=== PATIENT | male | born 1955 | race Caucasian/White ===

== ENCOUNTER → 2021-04-16 | Outpatient (CLI) | payer OTHER | END | disposition home or self-care (01) | LOC: OIH 07:42 | PROVIDERS: ATTEND Internal Medicine Cardiovascular Disease | DX: Z13.6 Encounter for screening for cardiovascular disorders (principal); J43.0 Unilateral pulmonary emphysema [MacLeod's syndrome] | CPT/HCPCS: 75571 ==